=== PATIENT | female | born 2005 | race African-American/Black ===

== ENCOUNTER 2025-10-17 21:25 | Emergency (ER) | payer OTHER, SELFPAY ==
[2025-10-17] MEDS ORDERED: Ibuprofen 200 MG TAB ONE (22:05)
[2025-10-17 22:23] LABS: Glucose, Urine (Dipstick) Normal (Negative); Leukocyte 25 (Negative); Protein, Urine (Dipstick) Negative (Neg-Trace); Specific Gravity, Urine 1.015 (1.005-1.030)
[2025-10-17 22:26] LABS: Pregnancy Test - Urine (BHCG) Negative (Negative); Pregu Control Background? CLEAR/WHITE (CLR/WHITE); Pregu Control Bar Appear? YES (CONTROL BAR)
[2025-10-17 22:43] LABS: Bacteria/HPF 2+ HPF (None Seen); CAUTI Indications for Culture Pelvic or flank pain; RBC/HPF 0-3 HPF (0-3)
[2025-10-17 22:46] LABS: Mucous/LPF 3+ LPF (<2+)
[2025-10-17 22:47] LABS: Urine Culture Reflex No No
[2025-10-18 21:37] LABS: Chlamydia by PCR, Vaginal Swab DETECTED (NotDetected); GC by PCR, Vaginal Swab Not Detected (NotDetected)
== END 2025-10-17 23:50 | disposition home or self-care (01) ==
LOC: CSHERS 21:25
DX: N76.0 Acute vaginitis (principal); B96.89 Other specified bacterial agents as the cause of diseases classified elsewhere; M54.9 Dorsalgia, unspecified; R10.A1 Flank pain, right side; F17.290 Nicotine dependence, other tobacco product, uncomplicated
CPT/HCPCS: 81001; 81025; 87428; 87480; 87491; 87510; 87591; 87660; 99283